=== PATIENT | male | born 1935 | race Caucasian/White ===

== ENCOUNTER → 2017-08-12 15:51 | Emergency (ER) | payer MEDICARE ==
[~2017-08-12 15:51] MED LIST: HYDROcodone/ACETAMIN 5-325 MG* 1 TAB PO ONE
[2017-08-12 18:56] LABS: Hematocrit 25 % (42-52); Hemoglobin 8.7 g/dl (14.0-18.0); Mean Corpuscular HGB Conc 35 g/dl (31-36); Mean Corpuscular Hemoglobin 32 pg (27-31); Mean Corpuscular Volume 91 fL (80-94); Mean Platelet Volume 7 um3 (7.4-10.4); Red Blood Count 2.74 10^6/ul (4.0-5.4); Red Cell Distribution Width 13 % (10.5-15); White Blood Count 10.3 10^3/ul (3.5-10.8)
--- NOTE | 2017-08-12 18:59 | ED ---
Upper Extremity Pain - HPI Summary HPI Summary: Pt here w/ acute onset Lt UE swelling, bruising and tightness 4 days post op for "total shoulder replacement" with orthopedic surgeon Dr. Glen Harley in [place]. He denies numbness, tingling, weakness. Has been wearing sling as advised. Taking norco 5/325mg (2 tabs) for pain along with ketorolac. Due for norco at 19:15 - will ordere while here. He has missed his dose of ketorolac however concern for DVT so will refrain until labs and U/S return. Denies chest pain, SOB, fever, chills, N/V/D. Has had some issues with constipation d/t narcotics however relieved with miralax. His only medical issue is HTN - controlled with medications. He also takes a 325mg ASA daily "just because". He held prior to surgery but has restarted. - History of Current Complaint Chief Complaint: EDShouGil Stated Complaint: LEFT SHOULDER SWELLING Time Seen by Provider: 08/12/17 16:52 Hx Obtained From: Patient, Family/Senior Executive Assistant - - Allergies/Home Medications Allergies/Adverse Reactions: Allergies Allergy/AdvReac Type Severity Reaction Status Date / Time Azithromycin Allergy Rash And Verified 08/12/17 16:48 Itching hay fever Allergy Sneezing Uncoded 08/12/17 16:48 PMH/Surg Hx/FS Hx/Imm Hx Previously Healthy: Yes Endocrine/Hematology History: Denies: Hx Anticoagulant Therapy - ASA, Hx Diabetes, Hx Systemic Lupus Erythematosus Cardiovascular History: Reports: Hx Hypertension - ON MEDS Denies: Hx Pacemaker/ICD, Other Cardiovascular Problems/Disorders Respiratory History: Denies: Other Respiratory Problems/Disorders GI History: Denies: Other GI Disorders History: Denies: Hx Dialysis, Hx Renal Disease, Other Problems/Disorders Musculoskeletal History: Reports: Hx Arthritis - OSTEO, BACK AND SHOULDERS, THUMB Denies: Hx Rheumatoid Arthritis, Hx Osteoporosis Sensory History: Reports: Hx Cataracts - JAMEL, Hx Contacts or Glasses - GLASSES, Hx Hearing Aid Opthamlomology History: Reports: Hx Cataracts - JAMEL, Hx Contacts or Glasses - GLASSES Neurological History: Reports: Other Neuro Impairments/Disorders - 2009 NUMBNESS , WEAKNESS IN RIGHT LEG FROM A FALL Psychiatric History: Denies: Hx Panic Disorder - Cancer History Cancer Type, Location and Year: Skin Hx Chemotherapy: No - Surgical History Surgery Procedure, Year, and Place: 1993 LAMINECTOMY. TONSILS A CHILD. Lt shoulder OA - total shoulder replacement 08/09/2017 in [facility] w/ Dr. Harley Hx Anesthesia Reactions: No - Immunization History Immunizations Up to Date: Yes Infectious Disease History: No Infectious Disease History: Denies: Traveled Outside the [place] in Last 30 Days - Family History Known Family History: Positive: None - Social History Occupation: Retired Lives: With Family Alcohol Use: Daily Alcohol Amount: 2 PER DAY Hx Substance Use: No Substance Use Type: Reports: None Hx Tobacco Use: No Smoking Status (MU): Never Smoked Tobacco Type: Cigarettes Have You Smoked in the Last Year: No Review of Systems Constitutional: Negative Negative: Fever, Chills ENT: Negative Negative: Sore Throat, Ear Ache, Nasal Discharge Cardiovascular: Negative Negative: Palpitations, Chest Pain Respiratory: Negative Negative: Shortness Of Breath, Cough Gastrointestinal: Negative Negative: Abdominal Pain, Vomiting, Diarrhea, Nausea Positive: no symptoms reported Positive: Arthralgia - Lt shoulder Positive: Bruising Neurological: Negative Negative: Headache, Weakness, Paresthesia, Numbness, Syncope, Slurred Speech Psychological: Normal All Other Systems Reviewed And Are Negative: Yes Physical Exam Triage Information Reviewed: Yes Vital Signs On Initial Exam: Initial Vitals Temp Pulse Resp BP Pulse Ox 97.6 F 71 15 129/51 100 08/12/17 15:54 08/12/17 15:54 08/12/17 15:54 08/12/17 15:54 08/12/17 15:54 Vital Signs Reviewed: Yes Appearance: Positive: Well-Appearing, No Pain Distress, Well-Nourished Skin: Positive: Warm, Dry - edematous, ecchymotic Lt UE from Left pectoralis to shoulder to bicep to forearm and hand - superficial skin breakdown in tricep/ ventral bicep area (appears to be from surgical turnicate) - skin warm to touch and well perfused; dressing in place over Lt shoulder - appears clean and dry Eyes: Positive: Normal, EOMI ENT: Positive: Hearing grossly normal Respiratory/Lung Sounds: Positive: Breath Sounds Present Cardiovascular: Positive: RRR, Pulses are Symmetrical in both Upper and Lower Extremities - Lt radial pulse + 2, cap refill < 2 secs Abdomen Description: Positive: Nontender, Soft Bowel Sounds: Positive: Present Musculoskeletal: Positive: Strength/ROM Intact - phalanges, wrist and elbow - no pain w/ passive Lt elbow ROM, Limited @ - Lt shoulder limited ROM per post op d/c instruction - was told he can hang arm at his side passively and push with RT hand to gently move, Pain @ - shoulder with pain but only reports "tightness" with palpation over Lt bicep/shoulder Neurological: Positive: Normal, Sensory/Motor Intact, Alert, Oriented to Person Place, Time, CN Intact II-III Psychiatric: Positive: Normal - Chaz Coma Scale Coma Scale Total: 15 Diagnostics - Vital Signs Vital Signs Temp Pulse Resp BP Pulse Ox 08/12/17 15:54 97.6 F 71 15 129/51 100 - Laboratory Lab Statement: Any lab studies that have been ordered have been reviewed, and results considered in the medical decision making process. Course/Dx - Course Course Of Treatment: Pt presents w/ Lt UE edema and ecchymosis s/p post op total shoulder in [place] Sent here for eval of DVT. Since pt is limited w/ ROM per post op, a call has been made to his surgeon to request permission for range of passive motion to perform U/S DVT. Spoke with Gama at Dr. Mahan's on -call service. He will relay message to resident that call back LIZZETTE is requested. If not return call in 30 mins, Valentina Watts PA-C will call again. Discussed case with her and Jae U/S tech who is requesting a minumim of 60 degrees of abduction for study to be performed. If this is not granted or resident does not return call, radiology will be contacted here for guidance on next best imaging protocol. Signed out to Valentina Watts PA-C. Pt stable and comfortable in supine position - hand edema appears to have improved some since here. No s/sx of infection - pending labs. Does not appear to have compartment syndrome at this time. Valentina Watts to see pt as well and will repeat exam as needed. Discussed plan w/ who agrees w/ plan. - Diagnoses Provider Diagnoses: Left arm swelling Discharge - Discharge Plan Condition: Stable Disposition: OTHER Discharge Disposition Comment: signed out to Valentina Watts PA-C
[2017-08-12 19:12] LABS: Albumin 3.1 g/dL (3.2-5.2); BUN/Creatinine Ratio 19.2 (8-20); Calcium 10.1 mg/dL (8.6-10.3); EGFR African American 92.8 (>60); EGFR Non-African American 72.2 (>60); Globulin 2.6 g/dL (2-4); Total Protein 5.7 g/dL (6.4-8.9)
[2017-08-12 19:13] LABS: C Reactive Protein 108.65 mg/L (< 5.00); Total Bilirubin 0.6 mg/dL (0.2-1.0)
[2017-08-12 19:20] LABS: Potassium 5.1 mmol/L (3.5-5.0)
--- NOTE | 2017-08-12 19:59 | PN ---
Progress Note - Progress Note Date of Service: 08/12/17 Note: Spoke with patient surgeon and the PA and both state can do whatever motion is necessary to get picture for u/s. unable to get complete view on u/s. explained limited of study to patient. u/s: IMPRESSION: Limited study. No evidence of thrombosis of the visualized deep venous structures of the upper arm. There is a presumed postoperative hematoma. Explained results to patient that likely post op swelling. Told to place ice on area. Lay back in bed so that arm is above heart. Patient understand and agrees with plan At discharge: pulses intact, sensation grossly intact. no signs of compartment syndrome at discharge but advised of what signs to look for. Diagnosis: edema left arm Post op left shoulder replacement Condition: stable Disposition: home
--- NOTE | 2017-08-12 20:18 | RAD ---
INDICATION: Recent left shoulder surgery. Pain and swelling. COMPARISON: None TECHNIQUE: Duplex interrogation of the left upperextremity was performed. This is a limited study. There is a bandage at the site of incision over the left proximal humerus and the patient was unable to rotate his arm or abduct significantly to allow for imaging of the distal arm. FINDINGS: Deep veins: The visualized internal jugular, visualized portion of subclavian, axillary and brachial veins are patent with There is normal compressibility, augmentation, and phasic flow. The radial and ulnar veins cannot be interrogated Superficial veins: Basilic vein is patent. The cephalic vein is not visualized. Popliteal fossa:There is no evidence of a popliteal cyst. Soft tissues: There is a complex hypoechoic collection near the incision site which shows no flow on Doppler interrogation. This measures approximately 5 x 4 x 5 cm and is likely a hematoma.. IMPRESSION: Limited study. No evidence of thrombosis of the visualized deep venous structures of the upper arm. There is a presumed postoperative hematoma.
[2017-08-12 20:49] VITALS: BP 134/54
== END ==
LOC: ED 15:51
DX: R60.0 Localized edema (principal); Z96.612 Presence of left artificial shoulder joint; E11.9 Type 2 diabetes mellitus without complications; M32.9 Systemic lupus erythematosus, unspecified; Z79.82 Long term (current) use of aspirin; I10 Essential (primary) hypertension; Z88.1 Allergy status to other antibiotic agents
CPT/HCPCS: 36415; 80053; 83605; 85025; 85610; 85730; 86140; 99281

== ENCOUNTER 2018-01-18 07:16 | Day surgery (SDC) | payer MEDICARE ==
[~2018-01-18 07:16] MED LIST changes: +Buffered Lidocaine 0.9% SYRIN* 5 ML/SYR SYRINGE INTRADERM ONE; -HYDROcodone/ACETAMIN 5-325 MG* 1 TAB PO ONE
[2018-01-18] MEDS ORDERED: Buffered Lidocaine 0.9% SYRIN* 5 ML/SYR SYRINGE ONE (07:26)
[2018-01-18] MEDS ORDERED: fentaNYL* 50 MCG/ML 2 ML VIAL (100 MCG VIAL) ONE (07:52)
[2018-01-18] MEDS ORDERED: Bupivacaine 0.25% SDV* 30 ML ONE (08:08)
[2018-01-18] MEDS ORDERED: Naloxone* 0.4 MG/ML 1 ML VIAL IV PRN (08:15)
--- NOTE | 2018-01-18 08:56 | OP ---
Operative Report - Blank - Operative Report Date of Operation: 01/18/18 Note: DATE OF OPERATION: 01/18/2018 - [facility] DATE OF : 1935 SURGEON: Sharath Song MD. SPINNING LATHE OPERATOR HYDRAULIC: LUKE Jacobs ANESTHESIOLOGIST: Dr. Zarate. ANESTHESIA: Local MAC PRE-OP DIAGNOSIS: Right dequervains disease. POST-OP DIAGNOSIS: Right dequervains disease. OPERATIVE PROCEDURE: 1. Right first dorsal compartment tendon sheath release INDICATIONS: Fahad has Dequervains disease that has recurred despite injections. We talked about treatment options and the patient wanted to proceed with surgical release. ESTIMATED BLOOD LOSS: 2 mL. COMPLICATIONS: None. FINDINGS: As expected. DESCRIPTION OF PROCEDURE: Fahad was seen in the preoperative holding area. The correct side, site, and procedure were identified. We came back to the operating room. I infiltrated the operative area with 0.25% Marcaine. The arm was prepped and draped in the usual fashion. Time-out was performed. The arm was exsanguinated with the Esmarch and the tourniquet was inflated to 250 mmHg. I transverse incision over the first dorsal compartment tendon sheath. Full thickness flaps were bluntly raised off the tendon sheath and the radial sensory nerve was retracted. I then longitudinally incised the first dorsal compartment tendon sheath along its dorsal margin in line with the tendons. An accessory compartment was not present. The tendons were completely freed. The tenosynovitis was excised. The skin was closed with 4-0 monocryl and steri-strips. The wound was dressed, tourniquet deflated, and the patient was taken to the recovery room in stable condition.
[2018-01-18 09:04] VITALS: BP 155/74
== END 2018-01-18 09:17 | disposition home or self-care (01) ==
LOC: OREAST 07:16
PROVIDERS: ATTEND Orthopaedic Surgery Hand Surgery
DX: M65.4 Radial styloid tenosynovitis [de Quervain] (principal); I10 Essential (primary) hypertension; M19.90 Unspecified osteoarthritis, unspecified site; Z85.828 Personal history of other malignant neoplasm of skin; Z87.891 Personal history of nicotine dependence
CPT/HCPCS: J3010

== ENCOUNTER 2018-07-24 07:29 | Day surgery (SDC) | payer MEDICARE ==
--- NOTE | 2018-07-13 17:35 | HP ---
CC: Dr. Brandy Cerda * PREOPERATIVE HISTORY AND PHYSICAL: DATE OF ADMISSION/SURGERY: 07/24/18 This patient is scheduled for same-day surgery admission by Dr. Crespo on 07/24/18. DATE OF PREOPERATIVE HISTORY AND PHYSICAL EXAMINATION: 07/13/18. ATTENDING SURGEON: Sage Crespo MD * (dictated by Mi Barriga NP) CHIEF COMPLAINT: Left inguinal hernia. HISTORY OF PRESENT ILLNESS: The patient is an 83-year-old male with a history of hypertension and benign prostatic hypertrophy who underwent left shoulder replacement surgery at [facility] in July 2017. While doing his postoperative physical therapy, he noticed swelling in the left groin. This seemed to be exacerbated by constipation, which he attributes to the narcotics he was on postoperatively. The left groin mass has enlarged and he saw his primary care provider, Dr. Brandy Cerda who confirmed the diagnosis of a left inguinal hernia. He denies any significant pain, but describes a slight burning sensation in the left inguinal region. He reports that sometimes, he has to manually reduce the hernia. He also notes that sometimes, the hernia interferes with walking, which he enjoys for exercise. He denies any signs or symptoms to suggest incarceration or strangulation. He has not had previous inguinal hernia repair; he did undergo vasectomy in [address]. [address] Crespo has examined the patient and reviewed the findings, which are consistent with a reducible left inguinal hernia. He described the nature of inguinal hernias and has advised open left inguinal hernia repair with mesh as a same-day surgery procedure. He reviewed the relevant risks and benefits and today I reviewed the expected postoperative care and recovery. The patient has had a chance to ask to questions and stated that he understands the information and is satisfied with the answers given to his questions. He will sign surgical consent on the day of surgery. PAST MEDICAL HISTORY: Significant for: 1. Hypertension. 2. Benign prostatic hypertrophy. 3. 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 4. 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 PAST SURGICAL HISTORY: 1. Left shoulder replacement surgery in July 2017 at [facility]. 2. Mohs procedure for squamous cell on his nose in 2016 and 2004. 3. Laminectomy in the lumbar region in 1993. 4. Right de Quervain's release in December 2017. 5. Vasectomy in 1977. MEDICATIONS: 1. Losartan 100 mg p.o. daily. 2. Amlodipine 10 mg p.o. daily. 3. Aspirin 81 mg p.o. daily and he will hold that for 5 days preoperatively and take his last dose on 07/18/18. 4. Finasteride 5 mg p.o. daily. 5. Xalatan eye drops daily. 6. Dorzolamide eye drops b.i.d. 7. Metamucil daily. 8. Zyrtec daily. 9. Fluticasone nasal spray daily. 10. Ibuprofen as needed. 11. Mucinex DM as needed. He also takes nutritional supplements consisting of saw palmetto, lycopene, and zinc. ALLERGIES: Include AZITHROMYCIN, ERYTHROMYCIN, and TIMOLOL. 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 He drinks 12 to 14 alcoholic beverages per week and denies the use of other substances. FAMILY HISTORY: No known anesthesia complications, bleeding tendencies, or clotting orders. REVIEW OF SYSTEMS: Constitutional: No fevers, chills, excessive fatigue, or unintended weight loss. Endocrine: No diabetes or thyroid disease. Hematologic: He does bruise easily but he has had no significant bleeding or required blood transfusions. He states that after his left shoulder replacement , he had extensive ecchymosis. Respiratory: No dyspnea on exertion. No chronic cough. Cardiovascular: No anginal chest pain. No history of myocardial infarction. No palpitations. He walks daily for exercise. Gastrointestinal: No nausea, vomiting, diarrhea, GI bleeding, or constipation. Genitourinary: No dysuria. Musculoskeletal: No complaints of back pain. He does have osteoarthritis in some joints. Neurologic: No headache or blurred vision. No areas of focal weakness or numbness. General: No history of anesthesia complications. No history of deep vein thrombosis or pulmonary embolism. PHYSICAL EXAMINATION GENERAL SURVEY: The patient is an 83-year-old male, well developed, well nourished, in no acute distress. VITAL SIGNS: Height 67.75 inches, weight 190 pounds, body mass index 29. Blood pressure 122/62, pulse 74 and regular, respiratory rate 18, temperature 98.2 tympanic. HEENT: Benign. NECK: Supple. No cervical lymphadenopathy. LUNGS: Breath sounds bilaterally clear and equal. HEART: Regular rate and rhythm, soft, systolic murmur, no rub. ABDOMEN: Active bowel sounds. Soft, nondistended, nontender throughout. No umbilical hernia. No obvious masses. No organomegaly. Inguinal exam was done by Dr. Crespo, which revealed a reducible left inguinal hernia with the patient standing and there was no palpable hernia on the right. RECTAL: Deferred. EXTREMITIES: Warm without edema or skin ulceration. NEUROLOGIC: Alert and oriented x3. Steady gait. SKIN: Warm, dry, intact. IMPRESSION: Left inguinal hernia. PLAN: Same-day surgery admission to Dr. Crespo' service on 07/24/18 for open left inguinal hernia repair with mesh. ABBI BARRIGA, OPERATOR SPECIALIST COMMUNICATIONS [id number]/[facility] #: [id number] ANDREW
[~2018-07-24 07:29] MED LIST changes: +Dexamethasone IV* 4 MG/ML 1 ML (4 MG) IV SLOW PU ONE; +Famotidine IV* 10 MG/ML 2 ML (20 mg) IV ONE
[2018-07-24] MEDS ORDERED: Dexamethasone IV* 4 MG/ML 1 ML (4 MG) ONE (07:59)
[2018-07-24] MEDS ORDERED: Famotidine IV* 10 MG/ML 2 ML (20 mg) ONE (07:59)
[2018-07-24] MEDS ORDERED: ceFAZolin 2 GM PREMIX in ORs 2 GM/50 ML BAG IVPB ONE (08:00)
[2018-07-24] MEDS ORDERED: Buffered Lidocaine 0.9% SYRIN* 5 ML/SYR SYRINGE ONE (08:00)
[2018-07-24] MEDS ORDERED: Bupivacaine 0.5% W/EPI SDV* 30 ML VIAL ONE (09:45)
[2018-07-24] MEDS ORDERED: Lidocaine 1% INJ* 10 MG/ML 30 ML SDV ONE (09:45)
[2018-07-24] MEDS ORDERED: Midazolam* 1 MG/ML 5 ML VIAL (5 MG) ONE (09:50)
[2018-07-24] MEDS ORDERED: fentaNYL* 50 MCG/ML 2 ML VIAL (100 MCG VIAL) ONE ×2 (09:50→10:29)
[2018-07-24] MEDS ORDERED: Naloxone* 0.4 MG/ML 1 ML VIAL IV PRN (09:54)
[2018-07-24] MEDS ORDERED: DiMENhydriNATE IV* 50 MG/ML VIAL IV PUSH PRN (09:54)
[2018-07-24] MEDS ORDERED: Ketorolac INJ* 30 MG/ML 1 ML VIAL IV PRN (09:54)
[2018-07-24] MEDS ORDERED: HYDROcodone/ACETAMIN 5-325 MG* 1 TAB PO PRN (09:54)
[2018-07-24] MEDS ORDERED: oxyCODONE/Acetamin 5/325 MG* TAB PO PRN (09:54)
[2018-07-24] MEDS ORDERED: fentaNYL* 50 MCG/ML 2 ML VIAL (100 MCG VIAL) IV PRN (09:54)
[2018-07-24] MEDS ORDERED: Propofol* 10 MG/ML 20 ML BTL ONE (10:02)
[2018-07-24] MEDS ORDERED: Lidocaine 2% PF * 5 ML VIAL ONE (10:02)
[2018-07-24] MEDS ORDERED: Ondansetron INJ* 2 MG/ML VIAL ONE (10:54)
[2018-07-24] MEDS ORDERED: Ketorolac INJ* 30 MG/ML 1 ML VIAL ONE (11:13)
[2018-07-24 13:08] VITALS: BP 125/59
--- NOTE | 2018-07-25 20:05 | OP ---
CC: Brandy Cerda MD * DATE OF OPERATION: 07/24/18 - [facility] DATE OF : [birth year] SURGEON: Sage Crespo MD FLOUR WORKER: None. ANESTHESIOLOGIST: Dr. Ferguson. ANESTHESIA: Local MAC. PRE-OP DIAGNOSIS: Left inguinal hernia. POST-OP DIAGNOSIS: Left inguinal hernia. OPERATIVE PROCEDURE: Open repair of left inguinal hernia with mesh. ESTIMATED BLOOD LOSS: Minimal. IV FLUIDS: Crystalloids. SPECIMENS: None. DRAINS: None. COMPLICATIONS: None. COUNT: The instrument, needle, and sponge counts were correct. DESCRIPTION OF PROCEDURE: The patient was brought to the operating room and placed on the table supine. Sequential compression devices were placed on both lower extremities. He was positioned and padded appropriately. He was prepped and draped in the usual sterile fashion. He received appropriate intravenous antibiotics. Time-out was performed. Local anesthetic was infiltrated into the left groin as a field block. An oblique incision was created and the subcutaneous tissues were divided with cautery. Any crossing veins were divided between clamps and ligated with absorbable ties. External oblique aponeurosis was identified and additional anesthetic infiltrated beneath this. The aponeurosis was opened along the line of its fibers through its superficial ring and then the leaves of the aponeurosis were reflected upon themselves and the ilioinguinal nerve was identified, mobilized, and preserved in a medial direction. The small Elias retractor was used. The contents of the inguinal canal were isolated at the level of pubic tubercle with a [place] drain. The patient was noted to have an indirect inguinal hernia. The cord structures were divided off the sac. The sac was opened to show no sliding component and then it was closed by pursestring suture with a 2-0 Vicryl. The repair was then performed with the Medtronic ProGrip mesh, left-sided. This was positioned to cover the floor of the canal with excellent coverage and the mesh was locked into place. No additional suturing was necessary. The ilioinguinal nerve appeared to be coursing directly into the mesh and cannot be mobilized away from the site. Therefore, it was clamped, divided and ligated with absorbable tie. The external oblique aponeurosis was then closed with 2-0 Vicryl running. The Sylvia's was closed with 3-0 Vicryl interrupted. Skin incision was closed with 4-0 Monocryl in a running subcuticular fashion. Steri-Strips and dressings were applied. The patient tolerated the procedure well. He was awakened and transferred to the recovery room in a stable condition. [id number]/[facility] #: [id number] MTDD
== END 2018-07-24 13:11 | disposition home or self-care (01) ==
LOC: OR 07:29
PROVIDERS: ATTEND Surgery
DX: K40.90 Unilateral inguinal hernia, without obstruction or gangrene, not specified as recurrent (principal); I10 Essential (primary) hypertension; Z85.828 Personal history of other malignant neoplasm of skin
CPT/HCPCS: J0690; J1100; J1885; J2250; J2405; J2704; J3010

== ENCOUNTER 2020-04-08 07:46 | Observation (INO) ==
[2020-04-08] MEDS ORDERED: ceFAZolin 2 GM PREMIX 2 GM/50 ML BAG IVPB ONE (08:00)
[2020-04-08 08:47] LABS: ABS Eosinophils 0.2 10^3/ul (0-0.6); ABS Lymphocytes 0.9 10^3/ul (1.0-4.8); ABS Monocytes 0.7 10^3/ul (0-0.8); ABS Neutrophils 5.2 10^3/ul (1.5-7.7); Eosinophil % 2.4 %; Hematocrit 41 % (42-52); Hemoglobin 13.8 g/dL (14.0-18.0); Lymphocyte % 13.4 %; Mean Corpuscular HGB Conc 34 g/dL (31-36); Mean Corpuscular Hemoglobin 33 pg (27-31); Mean Corpuscular Volume 96 fL (80-94); Platelet Count 154 10^3/uL (150-450); Red Blood Count 4.25 10^6 /uL (4.18-5.48); Red Cell Distribution Width 14 % (10-15)
[2020-04-08 09:15] LABS: BUN/Creatinine Ratio 15.1 (8-20); Calcium 10.2 mg/dL (8.6-10.3); EGFR African American 70.1 (>60); Magnesium 1.8 mg/dL (1.9-2.7); Potassium 4.3 mmol/L (3.5-5.0)
[2020-04-08] MEDS ORDERED: Midazolam 5 mg/5 ml VIAL 1 mg/ml 5 ml VIAL (5 mg) ONE (09:32)
[2020-04-08] MEDS ORDERED: Lidocaine 1% VIAL 10 MG/ML VIAL ONE (09:32)
[2020-04-08] MEDS ORDERED: fentaNYL 100 mcg/2 ml 50 MCG/ML VIAL ONE (09:32)
[2020-04-08] MEDS ORDERED: Iohexol 300 (CONTRAST) 10 ML SDV ONE (09:33)
[2020-04-08] MEDS: ceFAZolin 1 GM ADVAN 1 GM in NS 0.9% 50 ML 50 ML IVPB SCH (17:30)
[2020-04-08] MEDS ORDERED: Latanoprost 0.005% 2.5 ml BTL BOTH EYES SCH (18:00)
[2020-04-09] MEDS: ceFAZolin 1 GM ADVAN 1 GM in NS 0.9% 50 ML 50 ML IVPB SCH ×2 (00:29→09:17)
[2020-04-09 08:06] VITALS: BP 132/59
[2020-04-09] MEDS ORDERED: Fluticasone NASAL SPRAY 50MCG 16 gm SPRAY BTL BOTH NARES SCH (09:00)
== END 2020-04-09 12:15 | disposition home or self-care (01) ==
LOC: CHICATH 07:46 → MEDTELE 07:46
PROVIDERS: ADMIT Specialist; ATTEND Specialist